=== PATIENT | female | born 1980 | race Caucasian/White ===

== ENCOUNTER 2019-05-26 08:13 | Emergency (ER) | payer SELFPAY ==
[2019-05-26 08:51] LABS: Bilirubin Negative (Negative); Blood, Urine Trace (Negative); Glucose, Urine (Dipstick) Negative (Negative); Leukocyte Large (Negative); Nitrite Negative (Negative); Protein, Urine (Dipstick) Negative (Neg-Trace); Urobilinogen 0.2 mg/dL (Less than 2)
[2019-05-26 08:52] LABS: Clarity Cloudy (Clear)
[2019-05-26 08:53] LABS: Bacteria/HPF 1+ HPF (None Seen); WBC/HPF 21-50 HPF (0-3)
[2019-05-26] MEDS ORDERED: Sulfameth/Trimethoprim DS 800-160mg TAB ONE (09:25)
== END 2019-05-26 09:31 | disposition home or self-care (01) ==
LOC: MADERS 08:13
DX: N39.0 Urinary tract infection, site not specified (principal)
CPT/HCPCS: 81003; 81015; 99283